=== PATIENT | female | born 1950 | race Caucasian/White ===

== ENCOUNTER → 2016-05-16 | Outpatient (CLI) | payer BC, MEDICARE | LOC: MC.RAD 08:00 | DX: Z12.31 Encounter for screening mammogram for malignant neoplasm of breast (principal); N63 Unspecified lump in breast ==

== ENCOUNTER → 2016-05-18 | Outpatient (CLI) | payer BC, MEDICARE | LOC: MC.RAD 10:30 | DX: N63 Unspecified lump in breast (principal) ==

== ENCOUNTER → 2017-06-12 | Outpatient (CLI) | payer BC, MEDICARE | LOC: MC.RAD 10:00 | DX: Z12.31 Encounter for screening mammogram for malignant neoplasm of breast (principal) ==

== ENCOUNTER → 2018-06-11 | Outpatient (CLI) | payer MEDICARE | LOC: MC.RAD 13:37 | DX: Z12.31 Encounter for screening mammogram for malignant neoplasm of breast (principal) ==

== ENCOUNTER → 2018-09-19 | Outpatient (CLI) | payer MEDICARE | LOC: COL.CARD 09-05 11:45 | DX: I49.3 Ventricular premature depolarization (principal) ==

== ENCOUNTER → 2019-10-07 | Outpatient (CLI) | payer MEDICARE | LOC: MC.RAD 11:30 | DX: Z12.31 Encounter for screening mammogram for malignant neoplasm of breast (principal) ==

== ENCOUNTER → 2021-02-01 | Outpatient (CLI) | payer MEDICARE | LOC: MC.RAD 10:28 | DX: Z12.31 Encounter for screening mammogram for malignant neoplasm of breast (principal) ==

== ENCOUNTER → 2022-03-15 | Outpatient (CLI) | payer MEDICARE | LOC: MC.RAD 13:31 | DX: Z12.31 Encounter for screening mammogram for malignant neoplasm of breast (principal) ==